=== PATIENT | female | born 1930 | race African-American/Black ===

== ENCOUNTER 2019-09-01 09:58 | Inpatient (IN) | payer MEDICARE, MEDICAID ==
[~2019-09-01] VITALS: Ht 162.6 cm; Wt 57.0 kg
[~2019-09-01 09:58] MED LIST: ACE325RS PO; ALB2.5IS NEB; ALEN70SO PO; AMLO10TA13 PO; CLON0.3T TD; FAM20T PO; HAL5T PO; HYDR-4833 PO; ONDA-101 PO; SENN-58 PO
[2019-09-01 10:44] LABS: Basophils # (auto) 0 10 ^3/uL (0-0.2); Basophils % (auto) 0.9 % (0.0-2.0); Eosinophils # (auto) 0.1 10 ^3/uL (0-0.8); Eosinophils % (auto) 1.1 % (0.0-7.0); Hematocrit 49.2 % (36.0-46.0); Hemoglobin 16.4 g/dL (12.2-16.2); Lymphocytes # (auto) 1.5 10 ^3/uL (0.4-5.4); Lymphocytes % (auto) 32.4 % (10.0-50.0); Mean Corpuscular Hemoglobin 31.4 pg (28.0-32.0); Mean Corpuscular Hgb Conc. 33.3 g/dL (32.0-36.0); Mean Corpuscular Volume 94.4 fL (80.0-100.0); Monocytes # (auto) 0.5 10 ^3/uL (0-1.3); Monocytes % (auto) 11.1 % (0.0-12.0); Neutrophils # (auto) 2.6 10 ^3/uL (1.6-8.6); Neutrophils % (auto) 54.5 % (37.0-80.0); Nucleated Red Blood Cells % 0.2 %; Platelet Count (auto) 197 10^3/uL (140-450); Red Blood Cells 5.21 10^6/uL (4.0-5.20); Red Cell Distribution Width 14.1 % (11.8-14.3); White Blood Cell 4.8 10^3/uL (4.4-10.8)
[2019-09-01 10:56] LABS: Albumin 3.2 g/dL (3.4-5.0); Calcium 8.7 mg/dL (8.5-10.1); Potassium 4.1 mmol/L (3.5-5.1)
[2019-09-01 11:00] LABS: Bilirubin, Total 0.5 mg/dL (0.2-1.0); Total Protein 8.1 g/dL (6.4-8.2)
[2019-09-01 11:03] LABS: BUN/Creatinine Ratio 11.8
[2019-09-01 11:30] LABS: Urine Bacteria NONE SEEN /hpf (None Seen); Urine Blood TRACE /uL (Negative); Urine WBC <1 /hpf (0 - 5)
[2019-09-01] MEDS ORDERED: MORPHINE SULF INJ 2 MG/ML SYRINGE 1ML IV PRN ×2 (13:00)
[2019-09-01] MEDS ORDERED: NITROGLYCERIN 0.4 MG SL TAB SL PRN (13:00)
[2019-09-01] MEDS ORDERED: IPRATROPIUM BROM 0.5 MG/2.5ML INH SOL NEB PRN (13:00)
[2019-09-01] MEDS ORDERED: LABETALOL HCL 5 MG/ML 4ML SYRINGE IV PRN (13:00)
[2019-09-01] MEDS ORDERED: HYDROcodone-ACET 5/325MG TAB PO PRN (13:00)
[2019-09-01] MEDS ORDERED: ONDANSETRON HCL 4 MG/2 ML VIAL IV PRN (13:00)
[2019-09-01] MEDS ORDERED: ACETAMINOPHEN 500 MG TAB PO PRN (13:00)
[2019-09-01] MEDS ORDERED: ALBUTEROL SULF 2.5 MG/0.5ML(0.5%) NEB SOLN NEB PRN (13:00)
[2019-09-01] MEDS: LABETALOL HCL 5 MG/ML ML 20ML VIAL IV PRN ×2 (13:50→22:34)
[2019-09-01] MEDS: SODIUM CHLORIDE 0.9% 1,000 ML IV SCH (13:51)
[2019-09-01 14:57] LABS: Folate (Folic Acid) 7.46 ng/mL (5.38-24)
[2019-09-01 14:58] VITALS: BP 174/80
[2019-09-01 17:00] VITALS: BP 160/66
[2019-09-01] MEDS ORDERED: LORazepam 2MG/ML-1ML VIAL IV PRN (20:15)
[2019-09-01] MEDS ORDERED: HALOPERIDOL LACTATE 5 MG/ML INJ VIAL IM PRN (20:15)
[2019-09-01] MEDS: FAMOTIDINE (10MG/ML) 2ML VL IV SCH (21:22)
[2019-09-01] MEDS: ATORVASTATIN 20 MG TAB PO SCH (21:22)
[2019-09-01 22:00] VITALS: BP 192/81
[2019-09-01] MEDS ORDERED: LABETALOL HCL 5 MG/ML ML 20ML VIAL IV ONE (22:20)
[2019-09-02] VITALS (8 sets, daily range): BP systolic 106–192; BP diastolic 64–97
[2019-09-02] MEDS ORDERED: hydrALAZINE HCL 20 MG/ML VL IV ONE (00:45)
[2019-09-02] MEDS: SODIUM CHLORIDE 0.9% 1,000 ML IV SCH (02:20)
[2019-09-02] MEDS: LABETALOL HCL 5 MG/ML ML 20ML VIAL IV PRN (02:48)
[2019-09-02] MEDS ORDERED: cloNIDine HCL 0.1 MG TAB PO ONE (04:15)
[2019-09-02] MEDS: FAMOTIDINE (10MG/ML) 2ML VL IV SCH (09:42)
[2019-09-02] MEDS: ASPirin-EC 81 mg tab PO SCH (09:42)
[2019-09-02] MEDS: amLODIPine BESYLATE 5 MG TAB PO SCH (09:43)
[2019-09-02 17:03] LABS: Potassium 3.9 mmol/L (3.5-5.1)
[2019-09-02 17:08] LABS: BUN/Creatinine Ratio 15.2
[2019-09-02] MEDS: ATORVASTATIN 20 MG TAB PO SCH (22:30)
[2019-09-03 05:05] VITALS: BP 137/94
[2019-09-03 06:42] LABS: BUN/Creatinine Ratio 14.3; Calcium 9.1 mg/dL (8.5-10.1)
[2019-09-03 09:00] VITALS: BP 133/89
[2019-09-03] MEDS ORDERED: FAMOTIDINE 20 MG TAB PO SCH (10:00)
[2019-09-03] MEDS: ASPirin-EC 81 mg tab PO SCH (11:18)
[2019-09-03] MEDS: amLODIPine BESYLATE 5 MG TAB PO SCH (11:20)
[2019-09-03 17:41] VITALS: BP 129/90
[2019-09-03] MEDS: ATORVASTATIN 20 MG TAB PO SCH (22:06)
[2019-09-04 00:58] VITALS: BP 138/65
[2019-09-04 04:33] VITALS: BP 140/67
[2019-09-04 09:00] VITALS: BP 135/74
[2019-09-04] MEDS ORDERED: FAMOTIDINE 20 MG TAB PO SCH (10:00)
[2019-09-04] MEDS: ASPirin-EC 81 mg tab PO SCH (11:41)
[2019-09-04] MEDS: amLODIPine BESYLATE 5 MG TAB PO SCH (11:41)
[2019-09-04 13:00] VITALS: BP 137/79
[2019-09-04 13:02] VITALS: BP 135/74
== END 2019-09-04 16:15 | disposition home or self-care (01) | DRG 71 ==
LOC: EDBD 09:58 → ER 09:58 → TELE 09:59 → TELE-EAST 16:23 → TELE-CENTR 23:15
PROVIDERS: ADMIT Nurse Practitioner Acute Care; ATTEND Internal Medicine
DX: G93.41 Metabolic encephalopathy (principal); E44.1 Mild protein-calorie malnutrition; F03.90 Unspecified dementia, unspecified severity, without behavioral disturbance, psychotic disturbance, mood disturbance, and anxiety; E86.0 Dehydration; J44.9 Chronic obstructive pulmonary disease, unspecified; N18.3 Chronic kidney disease, stage 3 (moderate); R10.9 Unspecified abdominal pain; R91.1 Solitary pulmonary nodule; K21.9 Gastro-esophageal reflux disease without esophagitis; E78.00 Pure hypercholesterolemia, unspecified; F17.210 Nicotine dependence, cigarettes, uncomplicated; E78.5 Hyperlipidemia, unspecified; Z82.49 Family history of ischemic heart disease and other diseases of the circulatory system; Z68.21 Body mass index [BMI] 21.0-21.9, adult; Z79.899 Other long term (current) drug therapy; Z86.73 Personal history of transient ischemic attack (TIA), and cerebral infarction without residual deficits; I12.9 Hypertensive chronic kidney disease with stage 1 through stage 4 chronic kidney disease, or unspecified chronic kidney disease
CPT/HCPCS: 36415; 70450; 71045; 71250; 74176; 80048; 80053; 80061; 81001; 82306; 82607; 82746; 83735; 84425; 84443; 84484; 85025; 93306; 93886; 96361; 96374; 97116; 97163; 97530; G0378; J3490

== ENCOUNTER 2020-03-06 19:41 | Inpatient (IN) | payer MEDICARE, MEDICAID ==
[~2020-03-06] VITALS: Ht 162.6 cm; Wt 62.8 kg
[~2020-03-06 19:41] MED LIST changes: -FAM20T PO; +FAMO20TA10 PO
[2020-03-06 22:01] LABS: Basophils # (auto) 0 10 ^3/uL (0-0.2); Basophils % (auto) 0.6 % (0.0-2.0); Eosinophils # (auto) 0 10 ^3/uL (0-0.8); Eosinophils % (auto) 0.2 % (0.0-7.0); Hematocrit 43.1 % (36.0-46.0); Hemoglobin 14.4 g/dL (12.2-16.2); Lymphocytes # (auto) 0.5 10 ^3/uL (0.4-5.4); Lymphocytes % (auto) 7.1 % (10.0-50.0); Mean Corpuscular Hemoglobin 31.7 pg (28.0-32.0); Mean Corpuscular Hgb Conc. 33.4 g/dL (32.0-36.0); Mean Corpuscular Volume 94.7 fL (80.0-100.0); Monocytes % (auto) 13.7 % (0.0-12.0); Neutrophils # (auto) 5.8 10 ^3/uL (1.6-8.6); Neutrophils % (auto) 78.4 % (37.0-80.0); Nucleated Red Blood Cells % 0.2 %; Platelet Count (auto) 203 10^3/uL (140-450); Red Blood Cells 4.55 10^6/uL (4.0-5.20); Red Cell Distribution Width 13.7 % (11.8-14.3); White Blood Cell 7.4 10^3/uL (4.4-10.8)
[2020-03-06 22:30] LABS: Albumin 3.7 g/dL (3.4-5.0); Anion Gap 7 (5-15); Blood Urea Nitrogen 20 mg/dL (7-18); Calcium 8.8 mg/dL (8.5-10.1); Carbon Dioxide 22 mmol/L (21-32); Chloride 110 mmol/L (98-107); Glucose 113 mg/dL (74-106); INR 1.04 (0.9-1.15); Partial Thromboplastin Time 25.1 sec (23.0-31.2); Potassium 4.1 mmol/L (3.5-5.1); Sodium 139 mmol/L (136-145)
[2020-03-06 22:38] LABS: Alanine Aminotransferase 12 U/L (13-56); Alkaline Phosphatase 96 U/L (45-117); Aspartate Aminotransferase 8 U/L (15-37); BUN/Creatinine Ratio 11.3; Bilirubin, Total 0.7 mg/dL (0.2-1.0); GFR African American 35 mL/min; GFR Non-African American 29 mL/min; Total Protein 8.6 g/dL (6.4-8.2)
[2020-03-06 22:46] LABS: Urine Bacteria FEW /hpf (None Seen); Urine Blood 2+ /uL (Negative); Urine Hyaline Cast FEW /lpf (0 - 2); Urine Mucus FEW (None Seen); Urine WBC 2 /hpf (0 - 5)
[2020-03-07] MEDS ORDERED: DOCUSATE SOD 100 MG CAP PO PRN (04:30)
[2020-03-07] MEDS ORDERED: ONDANSETRON HCL 4 MG/2 ML VIAL IV PRN (04:30)
[2020-03-07] MEDS ORDERED: SODIUM CHLORIDE 0.9% 1,000 ML IV ONE (04:30)
[2020-03-07] MEDS ORDERED: ACETAMINOPHEN 325 MG TAB PO PRN (04:30)
[2020-03-07 07:15] LABS: Hematocrit 43.2 % (36.0-46.0); Hemoglobin 13.9 g/dL (12.2-16.2); Mean Corpuscular Hemoglobin 31.1 pg (28.0-32.0); Mean Corpuscular Hgb Conc. 32.3 g/dL (32.0-36.0); Mean Corpuscular Volume 96.3 fL (80.0-100.0); Platelet Count (auto) 175 10^3/uL (140-450); Red Blood Cells 4.49 10^6/uL (4.0-5.20); Red Cell Distribution Width 13.9 % (11.8-14.3); White Blood Cell 5.4 10^3/uL (4.4-10.8)
[2020-03-07 07:23] LABS: Basophils % (manual) 0 (0.0-2.0); Blast Cells 0; Metamyelocytes % 0; Myelocytes % 0; Promyelocytes % 0; Reactive Lymphocytes 0
[2020-03-07 07:36] LABS: Calcium 8.7 mg/dL (8.5-10.1); Potassium 3.9 mmol/L (3.5-5.1)
[2020-03-07 07:40] LABS: BUN/Creatinine Ratio 10.7
[2020-03-07 07:45] LABS: Band Neutrophils % (manual) 1; Eosinophils % (manual) 2 (0-7); Lymphocytes % (manual) 21 (10.0-50.0); Monocytes % (manual) 16 (0-12)
[2020-03-07] MEDS ORDERED: amLODIPine BESYLATE 5 MG TAB PO ONE (12:00)
[2020-03-07 13:00] VITALS: BP 155/70
[2020-03-07] MEDS: cefTRIAXone 1GM/50ML D5W 50 ML IV SCH (15:55)
[2020-03-07 17:00] VITALS: BP 147/81
[2020-03-07] MEDS ORDERED: hydrALAZINE HCL 20 MG/ML VL IV ONE (19:15)
[2020-03-07] MEDS ORDERED: ENALAPRILAT 1.25 MG/ML-1ML VIAL IV PRN (19:45)
[2020-03-07 22:00] VITALS: BP 129/72
[2020-03-08 05:00] VITALS: BP 138/68
[2020-03-08 08:00] VITALS: BP 127/57
[2020-03-08] MEDS: cefTRIAXone 1GM/50ML D5W 50 ML IV SCH (09:31)
[2020-03-08] MEDS: amLODIPine BESYLATE 5 MG TAB PO SCH (09:32)
[2020-03-08 17:00] VITALS: BP 132/71
[2020-03-08 22:08] VITALS: BP 155/66
[2020-03-09 05:08] VITALS: BP 152/90
[2020-03-09 08:00] VITALS: BP 152/90
[2020-03-09 09:00] VITALS: BP 141/81
[2020-03-09] MEDS: cefTRIAXone 1GM/50ML D5W 50 ML IV SCH (10:29)
[2020-03-09] MEDS: amLODIPine BESYLATE 5 MG TAB PO SCH (10:30)
[2020-03-09 10:55] LABS: BUN/Creatinine Ratio 17.6; Calcium 8.5 mg/dL (8.5-10.1)
[2020-03-09 13:00] VITALS: BP 142/88
[2020-03-09 16:59] VITALS: BP 145/82
[2020-03-09 22:00] VITALS: BP 143/82
[2020-03-10 05:00] VITALS: BP 143/82
[2020-03-10 08:00] VITALS: BP 146/75
[2020-03-10 09:00] VITALS: BP 146/75
[2020-03-10] MEDS: amLODIPine BESYLATE 5 MG TAB PO SCH (10:01)
[2020-03-10] MEDS: cefTRIAXone 1GM/50ML D5W 50 ML IV SCH (10:02)
[2020-03-10] MEDS ORDERED: AMLO10TA13 PO (11:26)
[2020-03-10] MEDS ORDERED: HYDR50TA15 PO (11:27)
[2020-03-10 13:00] VITALS: BP 122/72
[2020-03-10 13:41] VITALS: BP 146/75
== END 2020-03-10 15:20 | disposition home or self-care (01) | DRG 640 ==
LOC: EDUNIT# 19:41 → ER 19:41 → EDBD 19:41 → OVERFLOW 19:42 → EAST 03-07 09:15 → WEST WING 03-08 11:20 → TELE-WESTW 03-08 19:34
PROVIDERS: ADMIT Hospitalist; ATTEND Internal Medicine Nephrology
DX: R62.7 Adult failure to thrive (principal); N17.0 Acute kidney failure with tubular necrosis; N39.0 Urinary tract infection, site not specified; R65.10 Systemic inflammatory response syndrome (SIRS) of non-infectious origin without acute organ dysfunction; R73.9 Hyperglycemia, unspecified; E86.0 Dehydration; N18.3 Chronic kidney disease, stage 3 (moderate); J44.9 Chronic obstructive pulmonary disease, unspecified; K21.9 Gastro-esophageal reflux disease without esophagitis; Z20.828 Contact with and (suspected) exposure to other viral communicable diseases; F03.90 Unspecified dementia, unspecified severity, without behavioral disturbance, psychotic disturbance, mood disturbance, and anxiety; E78.5 Hyperlipidemia, unspecified; F17.210 Nicotine dependence, cigarettes, uncomplicated; Z82.49 Family history of ischemic heart disease and other diseases of the circulatory system; I12.9 Hypertensive chronic kidney disease with stage 1 through stage 4 chronic kidney disease, or unspecified chronic kidney disease
CPT/HCPCS: 36415; 70450; 71045; 80048; 80053; 80061; 81001; 83605; 83880; 84484; 85007; 85025; 85027; 85610; 85730; 87040; 87086; 87426; 93005; G0378; J0696